=== PATIENT | male | born 1995 | race Caucasian/White ===

== ENCOUNTER 2022-11-21 10:48 | Emergency (ER) | payer OTHER, SELFPAY ==
[2022-11-21 11:26] VITALS: BP 136/89; PULSE 93; RESP 26; TEMP 36.3; O2SAT 100; BMI 22.8
--- NOTE | 2022-11-21 11:52 | W.ED.ABDPA2 ---
HPI - Abdominal Pain General: Chief Complaint: Abdominal Pain Stated Complaint: Abd pain Time Seen by Provider: 11/21/22 11:52 History of Present Illness: Mr. Yang is a 26-year-old male without significant medical or surgical history presenting to the emergency department due to left flank and testicular pain. Onset of symptoms was few hours ago and woke up with symptoms. He denies known specific provoking event. Has been at baseline health recently. Has had unrelenting severe sharp stabbing pain. Denies associated urinary symptoms or concern for sexually transmitted infections. Denies trauma. Overall course has persisted. Associated nausea, vomiting due to pain. No other specific changes in health, exacerbating, or alleviating factors identified. Onset (ago): hour(s) Pain Consistency: constant Location: Groin Severity: severe Quality: stabbing and sharp Radiation: L flank Migration to: no migration Exacerbating factors: nothing Relieving factors: nothing Associated Symptoms: Reports nausea and vomiting Review of Systems General: Reports: 10 or more systems reviewed and unremarkable except in HPI and below GI: Reports: nausea and vomiting PFSH ED PFSH: Medical History No significant past medical history Surgical History No significant past surgical history Family History Mother Gluten intolerance Father History of kidney stones Social History Smoking and tobacco status: current every day smoker cigarettes and e-cigarettes E-Cigarette Details: vaporizer device Alcohol intake: current Alcohol intake frequency: few times a week Adopted: No Marital status: Single Current occupational status: unemployed History of recent travel: No Physical Exam Const: COMMON NORMALS: alert GENERAL APPEARANCE: cooperative, well developed and in distress (Secondary to pain) HENMT: COMMON NORMALS: normocephalic and atraumatic HEAD & SCALP: normocephalic and atraumatic Eye: COMMON NORMALS: conjunctivae normal CONJUNCTIVA: Yes conjunctivae normal SCLERA: sclerae normal Neck/C-Spine: COMMON NORMALS: supple GENERAL: Yes trachea midline Resp: COMMON NORMALS: clear to auscultation bilaterally EFFORT & INSPECTION: Yes tachypneic AUSCULTATION: clear to auscultation bilaterally Cardio: COMMON NORMALS: regular rate and regular rhythm RATE: regular rate RHYTHM: regular rhythm GI: COMMON NORMALS: Soft to palpation PALPATION: Yes Soft to palpation and No Tenderness to palpation present (GI) : COMMON NORMALS: Yes normal external exam, Yes Testes normal and Yes scrotum normal Extremity: GENERAL: Yes normal exam except as noted and No edema Neuro: COMMON NORMALS: moves all extremities SENSORIUM/ORIENTATION: Yes alert and No Orientation impaired Psych: COMMON NORMALS: mental status grossly normal and Normal thought process present THOUGHT PROCESS: Normal thought process present Course Vital Signs: Vital signs: Vital Signs Temperature 97.4 F L 11/21/22 11:26 Pulse Rate 41 L 11/21/22 15:33 Respiratory Rate 18 11/21/22 15:33 Blood Pressure 143/70 11/21/22 15:33 Pulse Oximetry 99 11/21/22 15:33 Oxygen Delivery Me thod 11/21/22 11:26 MDM - Abdominal Pain Medical Decision Making 26-year-old gentleman presenting with atraumatic flank and testicular pain. Exam as above. Nontoxic, quite comfortable appearing. Labs notable for mild leukocytosis and hemoconcentration. No significant metabolic arrangement. Analysis with hematuria, no bacteria. Given degree of discomfort and testicular pain scrotal ultrasound as well as additional imaging warranted. No evidence of testicular pathology. There is mild left hydroureteronephrosis with a 4 mm distal ureter calcification. Patient improved with antiemetic, analgesia, also given Flomax. Plan to have patient strain urine for left ureterolithiasis. Also have urology follow-up. The results of ED evaluation were discussed with the patient including prescriptions and/or symptomatic cares (if applicable) including appropriate and responsible use, followup plan, and return precautions. The patient verbalized understanding and felt safe for discharge. Medical Records I reviewed the patient's medical records. Lab Data I reviewed the patient's lab results. 11/21/22 11:55 11/21/22 11:55 Labs/Radiology: Radiology Impressions Scrotum Ultrasound 11/21/22 11:56 IMPRESSION: 1. No testicular mass or torsion. 2. No evidence for epididymo-orchitis. Abdomen/Pelvis CT 11/21/22 13:39 IMPRESSION: 1. Mild LEFT hydroureteronephrosis secondary to a 4 mm calcification of the distal ureter. 2. No evidence for acute appendicitis. Appendicoliths are present within the nondilated appendix. Laboratory Results WBC 10.8 10^3/uL (4.0-10.0) H 11/21/22 11:55 RBC 5.22 10^6/uL (4.1-5.3) 11/21/22 11:55 Hgb 16.9 g/dL (11.7-16.6) H 11/21/22 11:55 Hct 48.9 % (42.0-52.0) 11/21/22 11:55 MCV 93.7 fl (80-94) 11/21/22 11:55 MCH 32.4 pg (28.0-34.0) 11/21/22 11:55 MCHC 34.6 g/dL (30.0-36.0) 11/21/22 11:55 RDW 11.8 % (12.1-15.1) L 11/21/22 11:55 Plt Count 396 10^3/cmm (130-400) 11/21/22 11:55 MPV 9.5 fL (7.4-10.4) 11/21/22 11:55 Neut % (Auto) 57.2 % 11/21/22 11:55 Lymph % (Auto) 32.7 % 11/21/22 11:55 [place] % (Auto) 8.5 % 11/21/22 11:55 Eos % (Auto) 0.8 % 11/21/22 11:55 Baso % (Auto) 0.5 % 11/21/22 11:55 Neut # (Auto) 6.17 10^3/uL (1.8-7.7) 11/21/22 11:55 Lymph # (Auto) 3.5 10^3/uL (0.8-4.8) 11/21/22 11:55 [place] # (Auto) 0.9 10^3/uL (0.2-0.9) 11/21/22 11:55 Eos # (Auto) 0.1 10^3/uL (0.0-0.8) 11/21/22 11:55 Baso # (Auto) 0.1 10^3/uL (0.0-0.1) 11/21/22 11:55 Nucleated RBC % (auto) 0 % 11/21/22 11:55 Nucleated RBCs # 0.0 /100WBC 11/21/22 11:55 Sodium 139 mmol/L (136-145) 11/21/22 11:55 Potassium 3.5 mmol/L (3.5-5.1) 11/21/22 11:55 Chloride 102 mmol/L (98-107) 11/21/22 11:55 Carbon Dioxide 23 mmol/L (22-29) 11/21/22 11:55 Anion Gap 17.5 (5-19) 11/21/22 11:55 BUN 15 mg/dL (6-20) 11/21/22 11:55 Creatinine 1.2 mg/dL (0.7-1.2) 11/21/22 11:55 GFR Calculation 73.8 mL/min (90-130) L 11/21/22 11:55 Glucose 151 mg/dL (65-115) H 11/21/22 11:55 Calculated Osmolality 292 mOsm/kg (285-295) 11/21/22 11:55 Calcium 9.7 mg/dL (8.5-10.5) 11/21/22 11:55 Total Bilirubin 0.8 mg/dL (0.15-1.2) 11/21/22 11:55 AST 23 U/L (0-40) 11/21/22 11:55 ALT 16 U/L (0-41) 11/21/22 11:55 Alkaline Phosphatase 111 U/L (40-130) 11/21/22 11:55 Total Protein 7.5 g/dL (6.6-8.7) 11/21/22 11:55 Albumin 4.5 g/dL (3.5-5.2) 11/21/22 11:55 Globulin 3.0 g/dL (1.3-4.6) 11/21/22 11:55 Urine Color Dark yellow (Yellow) 11/21/22 12:19 Urine Appearance Clear (CLEAR) 11/21/22 12:19 Urine pH 5 (5-7) 11/21/22 12:19 Ur Specific [place] 1.025 (1.005-1.030) 11/21/22 12:19 Urine Protein 1+ (Negative) H 11/21/22 12:19 Urine Glucose (UA) Norm (Normal) 11/21/22 12:19 Urine Ketones 1+ (Negative) H 11/21/22 12:19 Urine Blood 3+ (Negative) H 11/21/22 12:19 Urine Nitrate Negative (Negative) 11/21/22 12:19 Urine Bilirubin 1+ (Negative) H 11/21/22 12:19 Urine Urobilinogen 4 mg/dL (Negative) H 11/21/22 12:19 Ur Leukocyte Esterase 1+ (Negative) H 11/21/22 12:19 Urine RBC 5-10 /hpf (0-2) H 11/21/22 12:19 Urine WBC Rare /hpf (0-5) 11/21/22 12:19 Ur Squamous Epith Cells Rare /hpf (0-5) 11/21/22 12:19 Calcium Oxalate Crystal 15-25 /hpf H 11/21/22 12:19 Amorphous Sediment 1+ /hpf 11/21/22 12:19 Urine Bacteria None /hpf (NONE) 11/21/22 12:19 Urine Mucus 2+ /hpf 11/21/22 12:19 Discharge Plan Discharge Patient Disposition: Home Clinical Impression: Ureterolithiasis Condition: Stable Prescriptions: New ondansetron 4 mg tablet,disintegrating 4 mg PO Q8H PRN (Reason: nausea and vomiting) Qty: 15 0RF oxycodone 5 mg tablet 5 mg PO Q4H PRN (Reason: pain) Qty: 20 0RF Flomax 0.4 mg capsule 0.4 mg PO DAILY Qty: 20 0RF No Action Advil 200 mg Tablet 400 mg PO Q6H PRN (Reason: Pain) Discharge Orders: Discharge ED (Routine); Ordered 11/21/22 Ordered By: Fito Stewart Discharge Diet: Usual diet Discharge Activity: Increase activity as tolerated Patient Instructions: Kidney Stones (ED), How to Strain Your Urine (ED), Opioid Safety, Pain Management Activity Restrictions/Additional Instructions: Thank you for visiting the emergency department. You were seen and evaluated for abdominal pain. You are found to have a 4 mm distal ureter kidney stone which likely explains your symptoms. I do not believe that you require inpatient hospitalization at this time. I will message case management for follow-up with urology. Please strain your urine and watch for passage of kidney stone. I will prescribe antinausea medication, Flomax to increase likelihood of passing, and oxycodone for uncontrolled pain. Please use this cautiously. You may use [id number] medications such as acetaminophen and ibuprofen for pain however please do not exceed the daily recommended dosage as listed on the packaging and please keep in mind that many namebrand medications contain the same active ingredients. Please avoid these medications if previously instructed to do so by another physician due to other underlying medical condition. Return to the emergency department for fevers, inability to tolerate oral intake, worsening symptoms, or anything else that you are concerned about a feel needs emergency department evaluation. Coding Level of Care Code ED Gal[employer] for Petra Kirkland Exam Comprehensive
--- NOTE | 2022-11-21 11:56 | US_ITS ---
WS: [id number] TESTICULAR ULTRASOUND HISTORY: L test pain, eval torsion vs other COMPARISON: None available. TECHNIQUE: Real-time and color Doppler imaging or utilized to perform a testicular ultrasound. Right testicle: 4.8 cm x 2.9 cm x 2.2 cm. Normal size and echogenicity. No mass or torsion. Normal color Doppler is present throughout. Systolic and diastolic velocities are both present. No significant hydrocele. Right epididymis: Normal epididymis with no increased vascularity. Left testicle: 4.4 cm x 3.2 cm x 1.9 cm. Normal size and echogenicity. No mass or torsion. Normal color Doppler is present throughout. Systolic and diastolic velocities are both present. Small simple hydrocele. Left epididymis: Normal epididymis with no increased vascularity. US/US scrotum [id number] IMPRESSION: 1. No testicular mass or torsion. 2. No evidence for epididymo-orchitis.
[2022-11-21] MEDS: fentaNYL 50 mcg/mL INJ 2mL IVP ×2 (12:04→13:09)
[2022-11-21] MEDS: ondansetron 2 mg/ML SDV 2 mL 4 MG IVP ×2 (12:04→15:18)
[2022-11-21 12:10] LABS: Basophils # 0.1 10^3/uL (0.0-0.1); Basophils % 0.5 %; Eosinophils # 0.1 10^3/uL (0.0-0.8); Eosinophils % 0.8 %; Hematocrit 48.9 % (42.0-52.0); Hemoglobin 16.9 g/dL (11.7-16.6); Lymphocytes # 3.5 10^3/uL (0.8-4.8); Lymphocytes % 32.7 %; Mean Corpuscular HGB Conc 34.6 g/dL (30.0-36.0); Mean Corpuscular Hemoglobin 32.4 pg (28.0-34.0); Mean Corpuscular Volume 93.7 fl (80-94); Mean Platelet Volume 9.5 fL (7.4-10.4); Monocytes # 0.9 10^3/uL (0.2-0.9); Monocytes % 8.5 %; Neutrophils # 6.17 10^3/uL (1.8-7.7); Neutrophils % 57.2 %; Nucleated Red Blood Cells % 0 %; Platelet Count 396 10^3/cmm (130-400); Red Blood Count 5.22 10^6/uL (4.1-5.3); Red Cell Distribution Width 11.8 % (12.1-15.1); White Blood Count 10.8 10^3/uL (4.0-10.0)
[2022-11-21 12:44] LABS: Alanine Aminotransferase 16 U/L (0-41); Albumin Level 4.5 g/dL (3.5-5.2); Alkaline Phosphatase 111 U/L (40-130); Anion Gap 17.5 (5-19); Aspartate Amino Transferase 23 U/L (0-40); Blood Urea Nitrogen 15 mg/dL (6-20); Calcium 9.7 mg/dL (8.5-10.5); Carbon Dioxide 23 mmol/L (22-29); Chloride 102 mmol/L (98-107); Glomerular Filtration Rate 73.8 mL/min (90-130); Glucose 151 mg/dL (65-115); Osmolality Calculated 292 mOsm/kg (285-295); Potassium 3.5 mmol/L (3.5-5.1); Sodium 139 mmol/L (136-145); Total Bilirubin 0.8 mg/dL (0.15-1.2); Total Protein 7.5 g/dL (6.6-8.7)
[2022-11-21 12:55] LABS: Bilirubin Urine 1+ (Negative); Blood Urine 3+ (Negative); Glucose Urine UA Norm (Normal); Ketones Urine 1+ (Negative); Nitrate Urine Negative (Negative); Protein Urine 1+ (Negative); Specific Gravity, Urine 1.025 (1.005-1.030); Urine Appearance Clear (CLEAR); Urine Color Dark Yellow (Yellow); Urobilinogen Urine 4 mg/dL (Negative); pH Urine 5 (5-7)
[2022-11-21 12:56] LABS: Add Urine Microscopic? YES; Leukocyte Esterase Urine 1+ (Negative); Squamous Epithelial Cell Urine RARE /hpf (0-5); WBC Urine RARE /hpf (0-5)
[2022-11-21 12:57] VITALS: BP 147/80; PULSE 86
[2022-11-21 12:57] LABS: Add Urine Culture? Yes; Amorphous Sediment Urine 1+ /hpf; Calcium Oxalate Crystals Urine 15-25 /hpf; Mucus Urine 2+ /hpf
[2022-11-21 13:35] VITALS: BP 144/80; PULSE 50; O2SAT 99
--- NOTE | 2022-11-21 13:39 | CT_ITS ---
WS: [id number] CT ABDOMEN AND PELVIS NONCONTRAST HISTORY: l flank pain, hematuria TECHNIQUE: Imaging performed through the abdomen and pelvis. Coronal and sagittal reformats are submi tted. All CT scans at [facility] use at least one of these dose optimization techniques: auto mated exposure control; mA and/or kV adjustment per patient size (includes targeted exams where dose is matched to clinical indication); or iterative reconstruction. DLP: 469.13 mGy.cm COMPARISON: None available. Lower thorax: Lung bases are clear. Visualized heart is normal. No hiatal hernia. Liver: Normal size liver. No mass or bile duct dilatation. Gallbladder: Normal gallbladder. Pancreas: Normal size and attenuation. Normal pancreatic duct. No pancreatitis or mass. Spleen: Normal. Adrenal glands: Normal. No mass. Right kidney: Normal size kidney with no mass or hydronephrosis. Left kidney: Normal size kidney with mild hydroureteronephrosis. 4 mm calcification in the distal ure ter. Aorta: Normal abdominal aorta, no aneurysm or atherosclerosis. No free fluid, intraperitoneal air or significant lymphadenopathy. GI tract: Nondistended stomach. No small bowel obstruction. The appendix is not dilated. The appendix does contain calcification and increased density. Normal colon. Abdominal wall: Negative. No hernia. Pelvis: Normal. Osseous structures: Unremarkable. CT/CT kidney stone [id number] IMPRESSION: 1. Mild LEFT hydroureteronephrosis secondary to a 4 mm calcification of the di stal ureter. 2. No evidence for acute appendicitis. Appendicoliths are present within the n ondilated appendix.
[2022-11-21] MEDS: ketorolac 30 mg/mL INJ 15 MG IVP (14:45)
[2022-11-21 14:50] VITALS: BP 143/70; PULSE 41; RESP 18; O2SAT 99
[2022-11-21] MEDS: tamsulosin 0.4 mg Capsule PO (15:19)
[2022-11-21] MEDS: oxyCODONE 5 mg IR Tab/Cap PO (15:19)
[2022-11-21 15:33] VITALS: BP 143/70; PULSE 41; RESP 18; O2SAT 99
--- NOTE | 2022-11-26 11:00 | DCPLANNER ---
Addendum entered by Crystal Carrillo 12/06/22 10:01: Patient had a follow up appointment scheduled with urology - patient did attend appointment. Addendum entered by Crystal Carrillo 11/26/22 15:24: Patient has a follow up appointment scheduled for Tuesday, November 29, 2022 at 8:[address] Stock at urology. Clinic will call patient with appointment information. Original Note: team manager had message to schedule a follow up appointment for patient with urology. team manager sent patients information to the front office staff at urology. Patients information will be printed and reviewed. Clinic will call patient with appointment information.
== END 2022-11-21 15:35 | disposition home or self-care (01) ==
PROVIDERS: Emergency Provider Emergency Medicine
DX: N20.1 Calculus of ureter (principal)
CPT/HCPCS: 74176; 76870; 80053; 81001; 85025; 87086; 87491; 87591; 96374; 96375; 99285; J1885; J2405; J3010

== ENCOUNTER 2022-11-29 07:05 | Outpatient (CLI) | payer OTHER, SELFPAY ==
--- NOTE | 2022-11-29 07:18 | XR_ITS ---
WS: [id number] KUB, AP view, 11/29/2022 Clinical Data: STONES Comparison: None. Findings: No abnormal intraabdominal masses or calcifications are seen. There is no dilatated small bowel or ev idence of obstruction. There is air and fecal material throughout the colon. XR/XR KUB [id number] Impression: Negative KUB.
== END 2022-11-29 07:06 | disposition home or self-care (01) ==
PROVIDERS: Visit Provider Urology
DX: N20.1 Calculus of ureter (principal)
CPT/HCPCS: 74018; 81003

== ENCOUNTER 2022-12-11 15:05 | Outpatient (CLI) | payer OTHER, SELFPAY ==
--- NOTE | 2022-12-11 15:14 | XR_ITS ---
WS: [id number] XR KUB [id number] REASON FOR EXAM: STONES FINDINGS: There is a small calcification in the left lower pelvis which is identifiable in retrospect on the pr evious examination of 11/29/2022 and is unchanged in position. This calcification is in the approximate position as the distal left ureteral calculus demonstrated o n the CT scan of 11/21/2022. A radiograph of the pelvis and 2013 demonstrated no vascular calcificati ons within the pelvis. XR/XR KUB [id number] IMPRESSION: Likely small distal left ureteral calculus.
== END 2022-12-11 15:06 | disposition home or self-care (01) ==
PROVIDERS: Visit Provider Urology
DX: N20.1 Calculus of ureter (principal)
CPT/HCPCS: 74018; 81003